=== PATIENT | female | born 1995 | race African-American/Black ===

== ENCOUNTER 2019-06-30 06:09 | Emergency (ER) | payer SELFPAY ==
[~2019-06-30] VITALS: Ht 170.2 cm; Wt 95.3 kg
[2019-06-30] MEDS ORDERED: PHEN37.511 PO (06:20)
--- NOTE | 2019-06-30 06:53 | NUR ---
DR. DELGADO AT BEDSIDE FOR MSE.
--- NOTE | 2019-06-30 07:11 | NUR ---
Patient discharged to home in stable conditon. Written and verbal after care instructions given. Patient verbalizes understanding of instructions. PATIENT LEFT WITH STABLE GAIT.
[2019-06-30 07:12] VITALS: BP 124/70
== END 2019-06-30 07:12 | disposition home or self-care (01) ==
LOC: ER 06:17
DX: J06.9 Acute upper respiratory infection, unspecified (principal); J20.9 Acute bronchitis, unspecified; E66.9 Obesity, unspecified; Z68.32 Body mass index [BMI] 32.0-32.9, adult; Z88.8 Allergy status to other drugs, medicaments and biological substances; Z79.899 Other long term (current) drug therapy
CPT/HCPCS: A4663